=== PATIENT | male | born 1995 | race Caucasian/White ===

== ENCOUNTER 2019-01-23 22:51 | Emergency (ER) | payer BC ==
[~2019-01-23] VITALS: Ht 185.4 cm; Wt 74.8 kg
[2019-01-24 00:15] VITALS: BP 132/76
--- NOTE | 2019-01-24 00:53 | NUR ---
PT REFUSED CHEST XR. RISK AND BENEFITS EXPLAINED X3. PT STRONGLY REFUSED. DR. BUTLER AWARE.
== END 2019-01-24 01:17 | disposition home or self-care (01) ==
LOC: ER 23:04
DX: R05 Cough (principal)